=== PATIENT | male | born 1950 | race Caucasian/White ===

== ENCOUNTER → 2016-11-10 | Outpatient (CLI) | payer OTHER, MEDICARE ==
--- NOTE | 2016-11-10 17:38 | DX ---
PA and Lateral Chest - November 10, 2016 Indication: 66-year-old man with history of left lower lobe lung cancer. Surveillance. Comparison: Two-view chest dated May 01, [address] chest dated December 12, 2015. Findings: The mildly hyperinflated lungs are clear. Surgical clips are present in the left hilum, con sistent with left lower lobectomy. No pulmonary nodule, edema, effusion, or airspace consolidation. H eart size is normal. Minimal multilevel degenerative disk disease is unchanged. Impression: Clear lungs. No new pulmonary nodule or acute process.
== END ==
LOC: FIMAGING 14:31
PROVIDERS: ATTEND Surgery
DX: Z13.83 Encounter for screening for respiratory disorder NEC (principal); Z85.118 Personal history of other malignant neoplasm of bronchus and lung

== ENCOUNTER 2016-11-25 09:29 | Emergency (ER) | payer OTHER, MEDICARE ==
--- NOTE | 2016-11-25 10:27 | EDPHY ---
H & P Smoking Status: Former smoker Time Seen by Provider: 11/25/16 09:47 HPI/ROS: CHIEF COMPLAINT: Left lateral ankle pain HISTORY OF PRESENT ILLNESS: 66-year-old male complaining of left lateral ankle pain which has been occurring since mid October after he was hiking and rolled his foot. He has had reproducible pain to the lateral malleolus with weight- bearing with palpation ever since. No discoloration. No fall from height. No paresthesia. PHYSICAL EXAM (Prior to examination, patient consented to physical exam, hands were washed and my usual and customary physical exam procedures followed) 1) GENERAL: Well-developed, well-nourished, alert and oriented. Appears to be in no acute distress. 2) HEAD: Normocephalic 3) HEENT: Pupils equal, round, reactive to light bilaterally. 4) LUNGS: Breathing comfortably. 5) MUSCULOSKELETAL: Tender to palpation lateral malleolus. No visible abnormality. No crepitus. proximal tibia and fibula nontender .5th MT nontender negative Mancini test, compartments soft 6) SKIN: normal coloration no ecchymosis no erythema no induration. 7) VASCULAR: DP,PT pulses and cap refill present and brisk DIFFERENTIAL DIAGNOSIS: in no particular order including but not limited to fracture, sprain, compartment syndrome, septic arthritis Procedure: Splint A [place] boot splint was applied by ER tractor technician. After application of the splint I returned and re-examined the patient. The splint was adequately immobilizing the joint and distal to the splint the patient's circulation and sensation were intact. Patient shows no signs of compartment syndrome. Was given orthopedic precautions. (Dawson Bowling) Constitutional: Initial Vital Signs Temperature (C) 36.4 C 11/25/16 09:37 Heart Rate 61 11/25/16 09:37 Respiratory Rate 17 11/25/16 09:37 Blood Pressure 121/70 H 11/25/16 09:37 O2 Sat (%) 99 11/25/16 09:37 O2 Delivery Mode Room Air Allergies/Adverse Reactions: antidepressant (name N/A) Allergy (Uncoded 11/25/16 09:34) sunflower seeds Allergy (Uncoded 11/25/16 09:34) Home Medications: Medication Instructions Recorded ALPRAZolam [Xanax 1 MG (*)] 0.5 - 1 mg PO DAILY@05/10/15 Atenolol [Tenormin 50 mg (*)] 50 mg PO BID 05/10/15 Bupropion HCl [Buproban] 450 mg PO DAILY@05/10/15 Omeprazole [Prilosec 20 mg] 20 mg PO DAILY 05/10/15 oxyCODONE/APAP 5/325 [Percocet 0.25 - 0.5 tab PO Q4 PRN 07/28/15 5/325 (*)] oxyCODONE IR [Oxycodone Ir (RX)] 5 mg PO BID #20 tab 07/29/15 Viabrid 11/25/16 MDM/Departure - MDM Diagnostics: Left Ankle, Three Views History: Lateral pain, post trauma x 1 month when rolled ankle. Findings: No subacute or healing fracture, effusion, or malalignment is identified. There is mild medial hypertrophic change of the ankle mortise. There is atherosclerotic calcification of the tibialis posterior artery behind the ankle. There is a prominent plantar calcaneal spur. There is a small hypertrophic ridge of the distal anterior tibia. Dictated By: Saturnino Lazo MD Images reviewed by myself (Dawson Bowling) ED Course/Re-evaluation: No evidence of compartment syndrome. Doubt septic arthritis of the left ankle. Doubt DVT. Doubt arterial occlusion. He has been placed in a splint/[place] boot. He already has an established relationship at [facility] where he would like to follow-up. Usual customary orthopedic precautions instructions provided. He feels comfortable being discharged. (Dawson Bowling) The patient wasevaluatedand managed by themidlevel provider. Idiscussed the patient's presentation and course with thephysicianassistantor nurse practitionerand agree with theevaluation. My co-signature indicates that I have reviewed this chart and I agree with the findings and plan of care as documented. I am the secondary supervisingphysician. (Yaritza Roldan) - Depart Disposition: Home, Routine, Self-Care Clinical Impression: Left lateral ankle pain Condition: Good Instructions: Ankle Sprain (ED) Additional Instructions: Return to the ER immediately if you experience discoloration, have worsening pain, numbness, tingling, or any other symptoms that concern you. If you received x-rays in the emergency department today, be advised, that ligamentous , tendon, muscular, and other non-bony injury cannot be fully ruled out. Try to keep your affected extremity elevated above the level of your chest, and keep cold packs on the affected area, for the next 48 hours. Referrals: [facility] [Provider Group] - 2-3 days, call for appt.
--- NOTE | 2016-11-25 10:31 | DX ---
Left Ankle, Three Views History: Lateral pain, post trauma x 1 month when rolled ankle. Findings: No subacute or healing fracture, effusion, or malalignment is identified. There is mild me dial hypertrophic change of the ankle mortise. There is atherosclerotic calcification of the tibial is posterior artery behind the ankle. There is a prominent plantar calcaneal spur. There is a small hypertrophic ridge of the distal anterior tibia. Impression: No subacute or healing fracture is identified.
[2016-11-25 10:55] VITALS: BP 138/86; PULSE 65; RESP 16; TEMP 98.8; O2SAT 98
== END 2016-11-25 10:55 | disposition home or self-care (01) ==
DX: S99.912A Unspecified injury of left ankle, initial encounter (principal); X58.XXXA Exposure to other specified factors, initial encounter; Y93.01 Activity, walking, marching and hiking
CPT/HCPCS: 73610; 99283; L4386

== ENCOUNTER 2017-06-13 19:08 | Emergency (ER) | payer OTHER, MEDICARE ==
[2017-06-13 19:22] VITALS: RESP 18
[2017-06-13] MEDS ORDERED: TDAP ADULT 0.5 ML INJ (BOOSTRIX) IM ONE (20:12)
--- NOTE | 2017-06-13 20:12 | EDPHY ---
H & P Stated Complaint: Right index finger lac Time Seen by Provider: 06/13/17 20:01 HPI/ROS: CHIEF COMPLAINT: Finger laceration HISTORY OF PRESENT ILLNESS: The patient is a 67-year-old man who slammed his finger in the car door. He has a laceration to the palmar and dorsal aspect of his right index finger. He is not worried about fracture. He denies other injuries. He states that he has a because his thinks he needs stitches. REVIEW OF SYSTEMS: Constitutional: denies: chills, fever, recent illness, recent injury EENTM: denies: blurred vision, double vision, nose congestion Respiratory: denies: cough, shortness of breath Cardiac: denies: chest pain, irregular heart rate, lightheadedness, palpitations Gastrointestinal/Abdominal: denies: abdominal pain, diarrhea, nausea, vomiting, blood streaked stools Genitourinary: denies: dysuria, frequency, hematuria, pain Musculoskeletal: denies: joint pain, muscle pain Skin: See HPI Neurological: denies: headache, numbness, paresthesia, tingling, dizziness, weakness Hematologic/Lymphatic: denies: blood clots, easy bleeding, easy bruising Immunologic/allergic: denies: HIV/AIDS, transplant EXAM: GENERAL: Well-appearing, well-nourished and in no acute distress. HEAD: Atraumatic, normocephalic. EYES: Pupils equal round and reactive to light, extraocular movements intact, sclera anicteric, conjunctiva are normal. ENT: TMs normal, nares patent, oropharynx clear without exudates. Moist mucous membranes. NECK: Normal range of motion, supple without lymphadenopathy or JVD. LUNGS: Breath sounds clear to auscultation bilaterally and equal. No wheezes rales or rhonchi. HEART: Regular rate and rhythm without murmurs, rubs or gallops. ABDOMEN: Soft, nontender, normoactive bowel sounds. No guarding, no rebound. No masses appreciated. BACK: No CVA tenderness, no spinal tenderness, step-offs or deformities EXTREMITIES: No deformity or crepitus. No pain with axial loading of index finger. NEUROLOGICAL: Cranial nerves II through XII grossly intact. Normal speech, normal gait. 5/5 strength, normal movement in all extremities, normal sensation PSYCH: Normal mood, normal affect. SKIN: 1 cm laceration over the dorsal aspect of right index finger just distal to the MCP joint. 1 cm laceration just distal to the MCP joint on the palmar aspect of the right index finger. Source: Patient Exam Limitations: No limitations - Personal History Current Tetanus/Diphtheria Vaccine: No Current Tetanus Diphtheria and Acellular Pertussis (TDAP): No - Medical/Surgical History Hx Asthma: No Hx Chronic Respiratory Disease: No Hx Diabetes: No Hx Cardiac Disease: No Hx Renal Disease: No Hx Cirrhosis: No Hx Alcoholism: No Hx HIV/AIDS: No Hx Splenectomy or Spleen Trauma: No Other PMH: Lung CA ( non-small -cell), Depression, Colon resection, HTN, CHEMO - Social History Smoking Status: Former smoker Alcohol Use: Sober Drug Use: None Constitutional: Initial Vital Signs Temperature (C) 36.7 C 06/13/17 19:20 Heart Rate 62 06/13/17 19:20 Respiratory Rate 18 06/13/17 19:20 Blood Pressure 97/69 L 06/13/17 19:20 O2 Sat (%) 97 06/13/17 19:20 O2 Delivery Mode Room Air Allergies/Adverse Reactions: antidepressant (name N/A) Allergy (Uncoded 11/25/16 09:34) sunflower seeds Allergy (Uncoded 11/25/16 09:34) Home Medications: Medication Instructions Recorded ALPRAZolam [Xanax 1 MG (*)] 0.5 - 1 mg PO DAILY@18 05/10/15 Atenolol [Tenormin 50 mg (*)] 50 mg PO BID 05/10/15 Bupropion HCl [Buproban] 450 mg PO DAILY@05/10/15 Omeprazole [Prilosec 20 mg] 20 mg PO DAILY 05/10/15 Viabrid 11/25/16 Medical Decision Making Procedures: Procedure: Laceration repair. Verbal consent was obtained from the patient. The 1 cm index finger laceration was anesthetized with 0.5% bupivacaine locally infiltrated. The wound was irrigated copiously according to protocol, draped and explored to its base. It was approximately 1/2 cm deep. There were no deep structures involved. No tendon, nerve, or vascular injury was identified when explored through full range of motion. No foreign body was identified. The wound was repaired with 5.0 Prolene, 3 sutures, interrupted. The wound repair was simple without wound margin revisement or multiple flap alignment. The procedure was performed by myself. A dressing was then placed with sterile gauze and bacitracin. Procedure: Laceration repair. Verbal consent was obtained from the patient. The 1 cm index finger dorsal aspect laceration was anesthetized with 0.5% bupivacaine locally infiltrated. The wound was irrigated copiously according to protocol, draped and explored to its base. It was approximately 1/2 cm deep. There were no deep structures involved. No tendon, nerve, or vascular injury was identified when explored through full range of motion. No foreign body was identified. The wound was repaired with 5.0 Prolene, 3 sutures, interrupted. The wound repair was simple without wound margin revisement or multiple flap alignment. The procedure was performed by myself. A dressing was then placed with sterile gauze and bacitracin. ED Course/Re-evaluation: The patient has 2 small lacerations that need to be repaired. He also needs his tetanus vaccine updated. He does not think that it is fractured and has normal range of motion and cap refill. He declines x-ray. Patient tolerated suture repair. He has received his tetanus vaccine. He is happy with this and is eager to go home. He continues to decline x-rays. Differential Diagnosis: Partial list of the Differential diagnosis considered include but were not limited to; laceration, fracture and although unlikely based on the history and physical exam, I also considered nerve injury, vascular injury, foreign body. I discussed these differential diagnoses and the plan with the patient as well as the usual and expected course. The patient understands that the diagnosis is provisional and that in medicine we are not always correct and that further workup is often warranted. Usual and customary warnings were given. All of the patient's questions were answered. The patient was instructed to return to the emergency department should the symptoms at all worsen or return, otherwise to followup with the physician as we discussed. - Data Points Medications Given: Discontinued Medications Diphtheria/Tetanus/Acell Pertussis (Boostrix) 0.5 ml IM .ONCE ONE Stop: 06/13/17 20:13 Last Admin: 06/13/17 20:31 Dose: 0.5 ml Departure - Departure Disposition: Home, Routine, Self-Care Clinical Impression: Laceration of right index finger Qualifiers: Encounter type: initial encounter Damage to nail status: without damage Foreign body presence: without foreign body Qualified Code(s): S61.210A - Laceration without foreign body of right index finger without damage to nail, initial encounter Condition: Fair Instructions: Care For Your Stitches (ED), Laceration (ED) Additional Instructions: Have your sutures removed in 7-10 days Referrals: Vasu Cota DO [Primary Care Provider] - As per Instructions
[2017-06-13 21:23] VITALS: BP 122/71; PULSE 53; TEMP 97.5; O2SAT 94
== END 2017-06-13 21:24 | disposition home or self-care (01) ==
PROC: 0HQFXZZ Repair Right Hand Skin, External Approach (ICD-10-PCS; principal; 2017-06-13)
DX: S61.210A Laceration without foreign body of right index finger without damage to nail, initial encounter (principal); I10 Essential (primary) hypertension; Z23 Encounter for immunization; Z87.891 Personal history of nicotine dependence; Z85.118 Personal history of other malignant neoplasm of bronchus and lung; W23.0XXA Caught, crushed, jammed, or pinched between moving objects, initial encounter

== ENCOUNTER 2017-06-16 11:02 | Emergency (ER) | payer OTHER, MEDICARE ==
[2017-06-16 11:15] VITALS: PULSE 62; TEMP 98.1
--- NOTE | 2017-06-16 13:19 | EDPHY ---
H & P Stated Complaint: increasing redness/swelling knuckle of r hand/seen thursday HPI/ROS: CHIEF COMPLAINT: Concern for infection of right index finger lacerations HISTORY OF PRESENT ILLNESS: Patient presents with complains of possible infection of the right index finger lacerations. On Thursday the finger was caught in a car door that did latch on it. He was seen here with suture repair of 2 small lacerations. No x-ray performed. Discharged home and doing well until he began to have more pain and redness yesterday and into this morning. He is concerned about infection. There is no purulence. No warmth. No difficulty bending or straightening the finger. No complaints distally. No other associated complaints or modifying factors. ESTABLISHED ORTHOPEDIST: None REVIEW OF SYSTEMS: Ten systems reviewed and are negative unless otherwise noted in the HPI PAST MEDICAL HISTORY: Reviewed PAST SURGICAL HISTORY: Multiple. Reviewed SOCIAL HISTORY: Nonsmoker. Lives here locally independently FAMILY HISTORY: Noncontributory. EXAMINATION General Appearance: Alert, no distress Cardiovascular: Pulses normal throughout. Symmetric radial pulses 2+ Brisk cap refill Neurological: A&O, sensory symmetric, strength symmetric. Normal 2 point sensation. Good strength of the interossei Skin: Warm and dry, no rash. Two laceration of the right index finger that are suture repaired with 3 simple interrupted sutures each. No dehiscence. Mild erythema and swelling. No purulence. Neurovascular intact distally Extremities: Mild tenderness of right index finger lacerations. No difficulty with range of motion. No evidence of tenosynovitis or septic joint. Neuro intact distal to the lacerations Psychiatric: Mood and affect normal DIFFERENTIAL DIAGNOSES: Including but not limited to laceration, edema, fracture, cellulitis, abscess, tenosynovitis, septic joint MDM: 1:20 p.m. Right index finger laceration with some erythema and edema surrounding his lacerations. He is neuro intact with no evidence of septic joint. Full range of motion without deficit. X-ray was not performed on the initial visit, thus I will obtain this. No acute distress 2:00 p.m. X-ray as read by me reveals a possible, small chip fracture of the right index finger proximal phalanx 2:20 p.m. X-ray has been read as equivocal fracture at the base of the right proximal knee phalanx of the index finger. This is not an open fracture. He remains neurovascular intact. I will place him on Keflex prophylaxis and recommend a splint of the finger. Also recommend Hand surgery follow-up to the fracture. I voiced the importance of the immobilization of the finger to the patient. He informed me that he may need to use that hand for work. We discussed the risks and benefits and I informed him that is up to him to make that decision and follow up with hand surgeon for definitive care. ED precautions were also discussed. Discharged home stable condition, neurovascular intact post splinting ED Precautions: Worsening pain. Erythema, edema, cyanosis, pallor, paresthesia or anesthesia. Source: Patient Exam Limitations: No limitations - Personal History Current Tetanus/Diphtheria Vaccine: Yes - Medical/Surgical History Hx Asthma: No Hx Chronic Respiratory Disease: No Hx Diabetes: No Hx Cardiac Disease: No Hx Renal Disease: No Hx Cirrhosis: No Hx Alcoholism: No Hx HIV/AIDS: No Hx Splenectomy or Spleen Trauma: No Other PMH: Lung CA ( non-small -cell), Depression, Colon resection, HTN, CHEMO - Social History Smoking Status: Former smoker Constitutional: Initial Vital Signs Temperature (C) 98.1 F 06/16/17 11:12 Heart Rate 62 06/16/17 11:12 Respiratory Rate 16 06/16/17 11:12 Blood Pressure 135/100 H 06/16/17 11:12 O2 Sat (%) 99 06/16/17 11:12 O2 Delivery Mode Room Air Allergies/Adverse Reactions: antidepressant (name N/A) Allergy (Uncoded 06/16/17 11:12) sunflower seeds Allergy (Uncoded 06/16/17 11:12) Home Medications: Medication Instructions Recorded ALPRAZolam [Xanax 1 MG (*)] 0.5 - 1 mg PO DAILY@05/10/15 Atenolol [Tenormin 50 mg (*)] 50 mg PO BID 05/10/15 Bupropion HCl [Buproban] 450 mg PO DAILY@05/10/15 Omeprazole [Prilosec 20 mg] 20 mg PO DAILY 05/10/15 Viabrid 11/25/16 Cephalexin [Keflex (*)] 500 mg PO QID #40 cap 06/16/17 Medical Decision Making - Diagnostics Imaging Results: Imaging Impressions Finger X-Ray 06/16/17 13:19 Impression: Equivocal tiny chip involving the base of the distal phalanx. Departure - Departure Disposition: Home, Routine, Self-Care Clinical Impression: Pain from laceration Fracture of proximal phalanx of right index finger Qualifiers: Encounter type: initial encounter Fracture type: closed Fracture alignment: nondisplaced Qualified Code(s): S62.640A - Nondisplaced fracture of proximal phalanx of right index finger, initial encounter for closed fracture Condition: Good Instructions: Finger Fracture (ED) Additional Instructions: 1. Follow up with hand surgeon for definitive care 2. Recommend splint due to finger fracture 3. Keflex as prescribed to completion 4. ED precautions as discussed Referrals: Vasu Cota DO [Primary Care Provider] - As per Instructions Gerry Mendes MD [Medical Doctor] - As per Instructions Prescriptions: Cephalexin [Keflex (*)] 500 mg PO QID #40 cap
[2017-06-16 15:31] VITALS: BP 139/85; RESP 18; O2SAT 100
== END 2017-06-16 15:31 | disposition home or self-care (01) ==
DX: S62.640D Nondisplaced fracture of proximal phalanx of right index finger, subsequent encounter for fracture with routine healing (principal); W23.1XXD Caught, crushed, jammed, or pinched between stationary objects, subsequent encounter; Z85.118 Personal history of other malignant neoplasm of bronchus and lung; Z87.891 Personal history of nicotine dependence; I10 Essential (primary) hypertension

== ENCOUNTER → 2018-02-01 | Outpatient (CLI) | payer OTHER, MEDICARE | LOC: FIMAGING 15:17 | PROVIDERS: ATTEND Physician Assistant | DX: M25.561 Pain in right knee (principal) ==